=== PATIENT | female | born 1940 | race Caucasian/White ===

== ENCOUNTER → 2016-04-03 | Outpatient (CLI) | payer MEDICARE, MEDICAID ==
[2016-04-03 15:26] LABS: ALANINE AMINOTRANSFERASE 34 U/L (9-52); ALBUMIN 3.9 g/dL (3.5-5.0); ALKALINE PHOSPHATASE 55 U/L (38-126); ANION GAP 13 (5-19); ASPARTATE AMINO TRANSFERASE 27 U/L (14-36); BILIRUBIN,TOTAL 1.3 mg/dL (0.2-1.3); BLOOD UREA NITROGEN 11 mg/dL (7-20); CALCIUM 9.7 mg/dL (8.4-10.2); CARBON DIOXIDE 28 mmol/L (22-30); CHLORIDE 97 mmol/L (98-107); CREATININE RESULT 0.84 mg/dL (0.52-1.25); GLUCOSE 218 mg/dL (75-110); POTASSIUM 4.2 mmol/L (3.6-5.0); SODIUM 138.1 mmol/L (137-145); TOTAL PROTEIN 7.3 g/dL (6.3-8.2)
[2016-04-03 15:53] LABS: THYROID STIMULATING HORMONE 1.56 uIU/mL (0.47-4.68)
== END ==
LOC: OD 13:53
PROVIDERS: ATTEND Internal Medicine Endocrinology, Diabetes & Metabolism
DX: E11.65 Type 2 diabetes mellitus with hyperglycemia (principal)
CPT/HCPCS: 36415; 80053; 83036; 84439; 84443

== ENCOUNTER 2017-01-31 17:40 | Emergency (ER) | payer MEDICARE, MEDICAID ==
--- NOTE | 2017-01-31 18:18 | ER Document Report ---
ED General - General Mode of Arrival: Medic Information source: Patient Cannot obtain history due to: Dementia TRAVEL OUTSIDE OF THE [place] IN LAST 30 DAYS: No - HPI Patient complains to provider of: Abdominal pain/headache Onset: Just prior to arrival Onset/Duration: Sudden, Constant, Worse Quality of pain: Burning, Cramping, Sharp, Stabbing Severity: Moderate Pain Level: 3 Associated symptoms: Nausea, Weakness Exacerbated by: Denies Relieved by: Denies Similar symptoms previously: No Recently seen / treated by doctor: No <SHRUTHI CABRERA - Last Filed: 01/31/17 19:20> <ЕЛЕНА NICK - Last Filed: 02/01/17 00:13> - General Chief Complaint: Abdominal Pain Stated Complaint: STOMACH PAIN Time Seen by Provider: 01/31/17 17:57 Notes: Patient is a 77-year-old female comes emergency room by EMS from a facility called the [facility]. I understand the [facility] is a assisted living for dementia patients. The son is also at bedside who states that he and his sister had lunch with patient at her facility earlier today patient was complaining of not feeling well at that time. She did not eat very much according to the son. Son does not know much of patient's past medical history just states that when she does not feel good she does not eat. EMS reported to nursing that when they were called they were informed that patient was going to the bathroom and stated she could not get up and she had abdominal pain. The daughters arrived and informs me that patient has been sent out approximately a week ago to primary care provider for a checkup because of some chest pain she has been having. It was the daughter who informed me to nursing facility contacted her today told her the patient was once again having chest pain. Daughter also states that she has been complaining of some abdominal discomfort as well. She has a history of diverticulitis in the past. Patient has a no significant history of cardiac problems. There is also reported the patient is not drinking lots of fluids. (SHRUTHI CABRERA) - Related Data Allergies/Adverse Reactions: cephalexin monohydrate [From Keflex] Allergy (Verified 11/11/13 18:34) Unknown reaction Sulfa (Sulfonamide Antibiotics) Allergy (Verified 11/11/13 18:34) Unknown reaction Past Medical History - General Information source: Patient, POA - Power of Supervisor [place], Emergency Med Personnel, Outside Facility Records Cannot obtain history due to: Dementia - Social History Smoking Status: Unknown if Ever Smoked Cigarette use (# per day): No Chew tobacco use (# tins/day): No Smoking Education Provided: No Frequency of alcohol use: None Drug Abuse: None Family History: CAD - Past Medical History Cardiac Medical History: Reports: Hx Hypercholesterolemia Denies: Hx Atrial Fibrillation, Hx Congestive Heart Failure, Hx Coronary Artery Disease, Hx Heart Attack, Hx Hypertension, Hx Peripheral Vascular Disease , Hx Heart Murmur Pulmonary Medical History: Reports: Hx Bronchitis, Hx Pneumonia Denies: Hx Asthma, Hx COPD, Hx Tuberculosis Neurological Medical History: Denies: Hx Cerebrovascular Accident, Hx Seizures Endocrine Medical History: Reports: Hx Diabetes Mellitus Type 2. Denies: Hx Graves' Disease, Hx Hyperthyroidism, Hx Hypothyroidism GI Medical History: Reports: Hx Gastroesophageal Reflux Disease - Zantac BID. Denies: Hx Crohn's Disease, Hx Hiatal Hernia, Hx Irritable Bowel, Hx Liver Failure, Hx Pancreatitis, Hx Ulcer Musculoskeltal Medical History: Reports Hx Arthritis - generalized , Denies Hx Fibromyalgia, Denies Hx Multiple Sclerosis, Denies Hx Muscular Dystrophy Psychiatric Medical History: Denies: Hx Dementia, Hx Depression Traumatic Medical History: Reports: Hx Fractures - Hx LT humeral, LT patellar, Lt hip Fx's Past Surgical History: Reports: Hx Appendectomy, Hx Section - x 4, Hx Cholecystectomy, Hx Hysterectomy. Denies: Hx Bowel Surgery, Hx Colostomy, Hx Coronary Artery Bypass Graft, Hx Gastric Bypass Surgery, Hx Herniorrhaphy, Hx Mastectomy, Hx Pacemaker, Hx Tonsillectomy, Hx Tubal Ligation - Immunizations Hx Diphtheria, Pertussis, Tetanus Vaccination: Yes Hx Pneumococcal Vaccination: 02/08/13 <SHRUTHI CABRERA - Last Filed: 01/31/17 19:20> Review of Systems - Review of Systems Constitutional: Malaise, Weakness EENT: No symptoms reported Cardiovascular: No symptoms reported Respiratory: No symptoms reported Gastrointestinal: Abdominal pain, Nausea, Poor fluid intake Genitourinary: No symptoms reported Female Genitourinary: No symptoms reported Musculoskeletal: No symptoms reported Skin: No symptoms reported Hematologic/Lymphatic: No symptoms reported Neurological/Psychological: Headaches -: Yes All other systems reviewed and negative <SHRUTHI CABRERA - Last Filed: 01/31/17 19:20> Physical Exam - Vital signs Interpretation: Hypertensive, Bradycardic - General General appearance: Alert, Other - On physical exam patient is lying on the stretcher in exam room 12. When asked patient what was her reason for coming she states I do not know. She states that she had nominal pain up all of a sudden while she was getting ready for dinner and then she states after several minutes she had a severe headache. Son in her room about this time informing the patient has a history of dementia and basically patient is acting her baseline. Her son does state though that his sister is on the way here she has legal power of family law attorney and she knows everything about patient. Currently on physical exam no one was there that could tell me much. Patient comes from the [facility] which is a correction facility for dementia patients. - HEENT Head: Normocephalic, Atraumatic Eyes: Normal Nasal: Normal Mouth/Lips: Normal Mucous membranes: Dry Pharynx: Normal. No: Blood in hypopharynx, Erythema, Exudate, Peritonsillar abscess, Post nasal drainage, Retropharyngeal abscess, Tonsillar hypertrophy, Uvular edema, Potential airway comprom., Other Neck: Normal - Respiratory Respiratory status: No respiratory distress Chest status: Nontender Breath sounds: Normal Chest palpation: Normal - Cardiovascular Rhythm: Bradycardia Heart sounds: Normal auscultation - Abdominal Inspection: Normal Distension: Distended, Other - Examination of patient's abdomen shows that she is morbidly obese she has no tympany noted to percussion any quadrant. She has bowel sounds all 4 quads. Patient has increased tenderness in the left lower quadrant area. Patient is unsure whether she has her gallbladder or appendix she is only certain that she does not have any female organs. - Back Back: Normal, Nontender - Neurological Cognition: Confused Orientation: Disoriented to time, Disoriented to events Gattman Coma Scale Eye Opening: Spontaneous Gattman Coma Scale Verbal: Confused Poli Coma Scale Motor: Obeys Commands Gattman Coma Scale Total: 14 Speech: Normal - Skin Skin Temperature: Warm Skin Moisture: Dry Skin Color: Normal, Kimmell <SHRUTHI CABRERA - Last Filed: 01/31/17 19:20> - Vital signs Vitals: Temp Pulse Resp BP Pulse Ox 98.4 F 56 L 16 149/71 H 100 01/31/17 17:41 01/31/17 17:41 01/31/17 17:41 01/31/17 17:41 01/31/17 17:41 Course <SHRUTHI CABRERA - Last Filed: 01/31/17 19:20> - Laboratory Result Diagrams: 01/31/17 20:08 01/31/17 21:10 <ЕЛЕНА NICK - Last Filed: 02/01/17 00:13> - Re-evaluation Re-evalutation: 01/31/17 23:18 Recheck with patient. Pt currently continues to have a mild WEIR, frontal/sinus. No CP or worsening abd pain. Sodium moderate low 127, but is asymptomatic otherwise. Pt tolerating PO w/o difficulty CBC, Lipase, Trop x1 unremarkable. CXR unremarkable See CT head/abd-pelv results. Reviewed results with family and patient. 2nd trop pending. 02/01/17 00:03 2nd trop 0.019 (same as first). Pt asymptomatic. Reviewed case with Dr. Bill who is in agreement with discharge/plan. Patient is an afebrile, well-hydrated, 77-year-old female who presents the ED with a sinusitis, rectus sheath hematoma and decreased p.o. intake., Vitals are stable. PE is otherwise unremarkable. Patient is answering questions without any difficulties currently. Patient has no new concerns or complaints. Patient is tolerating p.o. without any difficulties. Patient states that she would like to go home. Low suspicion for any ACS, PE, pneumothorax, pericarditis, dissection, severe dehydration, CVA, TIA, hemorrhage, acute abdomen, or other systemic emergent condition at this time. Patient and family are aware that condition can change from initial presentation and the need to monitor symptoms closely and seek medical attention with any acute changes. I will send her home with a prescription for Augmentin to take as directed. Conservative measures for symptoms otherwise. Recheck with your PCM in 3-5 days. Return to the ED with any worsening/concerning symptoms otherwise as reviewed in discharge. He may consider consult with a general surgeon for the hematoma if unresolving or worsening. Patient and family are in agreement. ( ЕЛЕНА NICK) - Vital Signs Vital signs: Temp Pulse Resp BP Pulse Ox 98.4 F 56 L 16 149/71 H 100 01/31/17 17:41 01/31/17 17:41 01/31/17 17:41 01/31/17 17:41 01/31/17 17:41 - Laboratory Laboratory results interpreted by me: 01/31/17 01/31/17 01/31/17 20:08 20:21 21:10 RBC 3.16 L Hgb 9.7 L Hct 27.4 L Sodium 127.6 L Chloride 92 L Total Bilirubin 2.6 H Direct Bilirubin 0.6 H Total Protein 6.2 L Albumin 3.2 L Ur Leukocyte Esterase TRACE H - Transfer of Care Notes: 01/31/17 19:20 As stated earlier patient has been difficult to get history from since EMS had a version son had aversion and daughter had aversion. While waiting to get the stories together I started a workup based on physical exam that showed patient to have some left lower quadrant tenderness reproducible that she was slightly ashen in color her mouth was a little on the dry side she complained to me of a severe onset of a sudden headache but denied any visual problems and she also had some chest pain. Patient also has been coughing slightly. At this point I have placed orders for a CT head CT abdomen pelvis without contrast a urine urinalysis CBC CMP troponin lipase. Currently we are waiting for all of this to return. At this point I am going to turn patient over to the nighttime APC who is Rah Nick. If the diagnostics come back with patient having diverticulitis or a low-grade dehydration and we can send her back to the [facility] with treatment then she can definitely go back. Patient is a DNR and at this time pending the outcome of the CT head as well as the other labs if he feels it is warranted patient can be admitted for 23 hours for monitoring and stabilization and probably could go back tomorrow after being evaluated by the hospitalist. Currently I feel patient could probably go back if everything looks good. (SHRUTHI CABRERA) Discharge <SHRUTHI CABRERA - Last Filed: 01/31/17 19:20> <ЕЛЕНА NICK - Last Filed: 02/01/17 00:13> - Discharge Clinical Impression: Acute sinusitis Qualifiers: Sinusitis location: ethmoidal Recurrence: not specified as recurrent Qualified Code(s): J01.20 - Acute ethmoidal sinusitis, unspecified Rectus sheath hematoma Qualifiers: Encounter type: initial encounter Qualified Code(s): S30.1XXA - Contusion of abdominal wall, initial encounter Condition: Stable Disposition: HOME, SELF-CARE Instructions: Augmentin ([facility]), Sinusitis ([facility]) Additional Instructions: Maintain adequate fluid intake Take meds as directed tylenol/ibuprofen as needed over the counter cold medication as needed for symptoms Humidified air may help Monitor for any worsening symptoms, watch closely Eat a healthy diet and monitor urinary output F/u: with your PCM in 2-3 days for a recheck Return to the ED with any fever, worsening pain, changes in mentation/behavior/ sleep/speech/vision/urinations, chest pain, palpitations, syncope, worsening WEIR , neck pain/stiffness, shortness of breath, wheezing, drooling, trouble swallowing/breathing, abdominal pain, n/v/d, rash, or worsening/concerning symptoms otherwise. Prescriptions: Amox Tr/Potassium Clavulanate [Augmentin 875-125 Tablet] 1 tab PO BID 10 Days # 20 tablet Forms: Elevated Blood Pressure Referrals: Mervat, Provider [Other] - 02/04/17
--- NOTE | 2017-01-31 18:48 | RADIOLOGY REPORT (SQ) ---
EXAM DESCRIPTION: CT HEAD WITHOUT COMPLETED DATE/TIME: 01/31/2017 6:33 pm REASON FOR STUDY: headache COMPARISON: None. TECHNIQUE: Axial images acquired through the brain without intravenous contrast. Images reviewed wi th bone, brain and subdural windows. Images stored on PACS. All CT scanners at this facility use dose modulation, iterative reconstruction, and/or weight based d osing when appropriate to reduce radiation dose to as low as reasonably achievable (ALARA). [facility]: Dose Right [facility]: CareDose [facility]: Dose Right [facility]: Teradose 4D [facility]: Smart [employer] RADIATION DOSE: CT Rad equipment meets quality standard of care and radiation dose reduction techniq ues were employed. CTDIvol: 63.5 mGy. DLP: 1163 mGy-cm. mGy. LIMITATIONS: None. FINDINGS: VENTRICLES: Normal size and contour for age. CEREBRUM: No masses. No hemorrhage. No midline shift. No evidence for acute infarction. Normal gra y/white matter differentiation. No areas of low density in the white matter. CEREBELLUM: No masses. No hemorrhage. No alteration of density. No evidence for acute infarction. EXTRAAXIAL SPACES: No fluid collections. No masses. ORBITS AND GLOBE: No intra- or extraconal masses. Normal contour of globe without masses. CALVARIUM: No fracture. PARANASAL SINUSES: Mucous membrane thickening and fluid in the bilateral frontal ethmoid and maxillar y sinuses from sinusitis. SOFT TISSUES: No mass or hematoma. OTHER: No other significant finding. IMPRESSION: BILATERAL FRONTAL ETHMOID AND MAXILLARY SINUSITIS. OTHERWISE, UNREMARKABLE BRAIN CT WITHOUT CONTRAST. EVIDENCE OF ACUTE STROKE: NO. COMMENT: Quality ID # [id number]: Final reports with documentation of one or more dose reduction techniques (e.g., Automated exposure control, adjustment of the mA and/or kV according to patient size, use of iterative reconstruction technique) TECHNICAL DOCUMENTATION: JOB ID: [id number] [email or web address]- All Rights Reserved
[2017-01-31] MEDS ORDERED: NORMAL SALINE 1000 ML 1,000 ML IV ONE (19:05)
--- NOTE | 2017-01-31 20:14 | RADIOLOGY REPORT (SQ) ---
EXAM DESCRIPTION: CT ABD/PELVIS NO ORAL OR IV COMPLETED DATE/TIME: 01/31/2017 7:28 pm REASON FOR STUDY: LLQ pain COMPARISON: CT abdomen pelvis 11/11/2013 TECHNIQUE: CT scan of the abdomen and pelvis performed without intravenous or oral contrast. Images reviewed with lung, soft tissue, and bone windows. Reconstructed coronal and sagittal MPR images revi ewed. All images stored on PACS. All CT scanners at this facility use dose modulation, iterative reconstruction, and/or weight based d osing when appropriate to reduce radiation dose to as low as reasonably achievable (ALARA). [facility]: Dose Right [facility]: CareDose [facility]: Dose Right [facility]: Teradose 4D [facility]: Smart [employer] RADIATION DOSE: CT Rad equipment meets quality standard of care and radiation dose reduction techniq ues were employed. CTDIvol: 13.1 mGy. DLP: 679 mGy-cm.mGy. LIMITATIONS: None. FINDINGS: An acute left rectus muscle sheath hematoma is present, 7.6 cm transverse by 3.2 cm AP x 7 .5 cm craniocaudad. This is best shown on axial image 46, sagittal image 65, and coronal image 12. LOWER CHEST: Hiatal hernia. Coronary artery calcifications, cardiomegaly. NON-CONTRASTED LIVER, SPLEEN, ADRENALS: Evaluation limited by lack of IV contrast. No identified sign ificant masses. PANCREAS: No masses. No peripancreatic inflammatory changes. GALLBLADDER: Surgically absent RIGHT KIDNEY AND URETER: No suspicious masses. Assessment limited by lack of IV contrast. No signif icant calcifications. No hydronephrosis or hydroureter. LEFT KIDNEY AND URETER: No suspicious masses. Assessment limited by lack of IV contrast. No signifi cant calcifications. No hydronephrosis or hydroureter. AORTA AND RETROPERITONEUM: No aneurysm. No retroperitoneal masses or adenopathy. BOWEL AND PERITONEAL CAVITY: No bowel obstruction. No free intraperitoneal air or fluid. Incidental finding of a fatty polyp in the 3rd portion of the duodenum on coronal image 34. APPENDIX: Not identified PELVIS, BLADDER, AND ABDOMINAL WALL:No abnormal masses. No free fluid. Bladder normal. Normal size f emale pelvic organs. BONES: Old right hip replacement. Chronic L1 50% compression deformity OTHER: No other significant finding. IMPRESSION: Left rectus muscle sheath hematoma COMMENT: Quality ID # [id number]: Final reports with documentation of one or more dose reduction techniques (e.g., Automated exposure control, adjustment of the mA and/or kV according to patient size, use of iterative reconstruction technique) TECHNICAL DOCUMENTATION: JOB ID: [id number] [email or web address]- All Rights Reserved
--- NOTE | 2017-01-31 20:16 | RADIOLOGY REPORT (SQ) ---
EXAM DESCRIPTION: CHEST SINGLE VIEW COMPLETED DATE/TIME: 01/31/2017 7:42 pm REASON FOR STUDY: weakness COMPARISON: AP chest 01/20/2013, 09/18/2012 EXAM PARAMETERS: NUMBER OF VIEWS: One view. TECHNIQUE: Single frontal radiographic view of the chest acquired. RADIATION DOSE: NA LIMITATIONS: AP portable film, lordotic positioning FINDINGS: LUNGS AND PLEURA: No opacities, masses or pneumothorax. No pleural effusion. MEDIASTINUM AND HILAR STRUCTURES: No masses. Contour normal. HEART AND VASCULAR STRUCTURES: Stable mild cardiomegaly BONES: No acute findings. HARDWARE: Clips right upper quadrant post cholecystectomy OTHER: No other significant finding. IMPRESSION: NO ACUTE RADIOGRAPHIC FINDING IN THE CHEST. TECHNICAL DOCUMENTATION: JOB ID: [id number] [employer]- All Rights Reserved
[2017-01-31 20:21] LABS: ABSOLUTE BASOPHILS # (AUTO) 0.1 10^3/uL (0.0-0.2); ABSOLUTE EOSINOPHILS # (AUTO) 0.6 10^3/uL (0.0-0.6); ABSOLUTE MONOCYTES (AUTO) 0.8 10^3/uL (0.1-1.4); BASOPHILS % (AUTO) 0.9 % (0-2); HEMATOCRIT 27.4 % (36.0-47.0); HEMOGLOBIN 9.7 g/dL (12.0-15.5); HGB HCT DIFFERENCE 1.7; LYMPHOCYTES % (AUTO) 21.2 % (13-45); MEAN CORPUSCULAR HEMOGLOBIN 30.8 pg (27.0-33.4); MEAN CORPUSCULAR HGB CONC 35.5 g/dL (32.0-36.0); MEAN CORPUSCULAR VOLUME 87 fl (80-97); MONOCYTES % (AUTO) 8.8 % (3-13); RED BLOOD COUNT 3.16 10^6/uL (3.72-5.28); RED CELL DISTRIBUTION WIDTH 13.5 % (11.5-14.0); SEGMENTED NEUTROPHILS % (AUTO) 63.1 % (42-78); WHITE BLOOD COUNT 9.6 10^3/uL (4.0-10.5)
[2017-01-31 21:03] LABS: APPEARANCE,URINE CLOUDY; BILIRUBIN,URINE NEGATIVE (NEGATIVE); GLUCOSE, URINE NEGATIVE (NEGATIVE); KETONES,URINE NEGATIVE (NEGATIVE); LEUKOCYTE ESTERASE,URINE TRACE (NEGATIVE); NITRITE,URINE NEGATIVE (NEGATIVE); PROTEIN,URINE NEGATIVE (NEGATIVE); URINE SPECIFIC GRAVITY 1.003; UROBILINOGEN,URINE NEGATIVE mg/dL (<2.0)
[2017-01-31 21:53] LABS: ALANINE AMINOTRANSFERASE 25 U/L (9-52); ALBUMIN 3.2 g/dL (3.5-5.0); ALKALINE PHOSPHATASE 52 U/L (38-126); ANION GAP 11 (5-19); ASPARTATE AMINO TRANSFERASE 24 U/L (14-36); BILIRUBIN,DIRECT 0.6 mg/dL (0.0-0.4); BILIRUBIN,TOTAL 2.6 mg/dL (0.2-1.3); BLOOD UREA NITROGEN 12 mg/dL (7-20); CALCIUM 8.4 mg/dL (8.4-10.2); CARBON DIOXIDE 25 mmol/L (22-30); CHLORIDE 92 mmol/L (98-107); GLUCOSE 106 mg/dL (75-110); LIPASE 61.9 U/L (23-300); POTASSIUM 3.8 mmol/L (3.6-5.0); SODIUM 127.6 mmol/L (137-145); TOTAL PROTEIN 6.2 g/dL (6.3-8.2)
[2017-02-01 00:31] VITALS: BP 119/63
--- NOTE | 2017-02-01 14:44 | EKG REPORT ---
SEVERITY:- ABNORMAL ECG - ATRIAL FIBRILLATION BORDERLINE T ABNORMALITIES, ANT-LAT LEADS : Confirmed by: Sugar Daley MD 01-Feb-2017 14:43:53
== END 2017-02-01 01:00 | disposition home or self-care (01) ==
LOC: ER 17:40
DX: S30.1XXA Contusion of abdominal wall, initial encounter (principal); J01.20 Acute ethmoidal sinusitis, unspecified; F03.90 Unspecified dementia, unspecified severity, without behavioral disturbance, psychotic disturbance, mood disturbance, and anxiety; R10.9 Unspecified abdominal pain; X58.XXXA Exposure to other specified factors, initial encounter
CPT/HCPCS: 93005; 99285; 96360; 36415; 83690; 85025; 80053; 81001; 84484; 71010; 70450; 74176; 93010; J7030

== ENCOUNTER 2017-02-14 12:19 | Emergency (ER) | payer MEDICARE, MEDICAID ==
[2017-02-14] MEDS ORDERED: NORMAL SALINE 500 ML IV ONE (12:47)
--- NOTE | 2017-02-14 12:47 | ER Document Report ---
ED Medical Screen (RME) - General Chief Complaint: Abdominal Pain Stated Complaint: ABDOMINAL PAIN Time Seen by Provider: 02/14/17 12:40 Notes: The patient is a 77-year-old female presents from [facility] after she saw her primary care physician earlier today. Her PND noticed increased bruising diffusely around her lower abdomen. She was diagnosed with a rectus sheath hematoma about 2 weeks ago and takes Eliquis daily. Patient denies abdominal pain, fevers, nausea, vomiting or urinary symptoms. PE: Ecchymosis over lower abdomen, nontender I have greeted and performed a rapid initial assessment of this patient. A comprehensive ED assessment and evaluation of the patient, analysis of test results and completion of the medical decision making process will be conducted by additional ED providers. TRAVEL OUTSIDE OF THE [place] IN LAST 30 DAYS: No - Related Data Allergies/Adverse Reactions: cephalexin monohydrate [From Keflex] Allergy (Verified 02/14/17 12:22) Unknown reaction Sulfa (Sulfonamide Antibiotics) Allergy (Verified 02/14/17 12:22) Unknown reaction Past Medical History - Past Medical History Cardiac Medical History: Reports: Hx Hypercholesterolemia Denies: Hx Atrial Fibrillation, Hx Congestive Heart Failure, Hx Coronary Artery Disease, Hx Heart Attack, Hx Hypertension, Hx Peripheral Vascular Disease , Hx Heart Murmur Pulmonary Medical History: Reports: Hx Bronchitis, Hx Pneumonia Denies: Hx Asthma, Hx COPD, Hx Tuberculosis Neurological Medical History: Denies: Hx Cerebrovascular Accident, Hx Seizures Endocrine Medical History: Reports: Hx Diabetes Mellitus Type 2. Denies: Hx Graves' Disease, Hx Hyperthyroidism, Hx Hypothyroidism Renal/ Medical History: Denies: Hx Peritoneal Dialysis GI Medical History: Reports: Hx Gastroesophageal Reflux Disease - Zantac BID. Denies: Hx Crohn's Disease, Hx Hiatal Hernia, Hx Irritable Bowel, Hx Liver Failure, Hx Pancreatitis, Hx Ulcer Musculoskeltal Medical History: Reports Hx Arthritis - generalized , Denies Hx Fibromyalgia, Denies Hx Multiple Sclerosis, Denies Hx Muscular Dystrophy Psychiatric Medical History: Denies: Hx Dementia, Hx Depression Traumatic Medical History: Reports: Hx Fractures - Hx LT humeral, LT patellar, Lt hip Fx's Past Surgical History: Reports: Hx Appendectomy, Hx Section - x 4, Hx Cholecystectomy, Hx Hysterectomy. Denies: Hx Bowel Surgery, Hx Colostomy, Hx Coronary Artery Bypass Graft, Hx Gastric Bypass Surgery, Hx Herniorrhaphy, Hx Mastectomy, Hx Pacemaker, Hx Tonsillectomy, Hx Tubal Ligation - Immunizations Hx Diphtheria, Pertussis, Tetanus Vaccination: Yes Physical Exam - Vital signs Vitals: Temp Pulse Resp BP Pulse Ox 97.9 F 50 L 20 101/45 L 94 02/14/17 12:27 02/14/17 12:27 02/14/17 12:27 02/14/17 12:27 02/14/17 12:27 Course - Vital Signs Vital signs: Temp Pulse Resp BP Pulse Ox 97.9 F 50 L 20 101/45 L 94 02/14/17 12:27 02/14/17 12:27 02/14/17 12:27 02/14/17 12:27 02/14/17 12:27
[2017-02-14 15:22] LABS: PROTHROMBIN TIME 22.9 SEC (11.4-15.4)
[2017-02-14 15:33] LABS: ALANINE AMINOTRANSFERASE 25 U/L (9-52); ALBUMIN 2.6 g/dL (3.5-5.0); ALKALINE PHOSPHATASE 41 U/L (38-126); ANION GAP 8 (5-19); ASPARTATE AMINO TRANSFERASE 23 U/L (14-36); BILIRUBIN,DIRECT 0.5 mg/dL (0.0-0.4); BILIRUBIN,TOTAL 1.3 mg/dL (0.2-1.3); BLOOD UREA NITROGEN 25 mg/dL (7-20); CALCIUM 8.5 mg/dL (8.4-10.2); CARBON DIOXIDE 24 mmol/L (22-30); CHLORIDE 102 mmol/L (98-107); CREATINE KINASE 84 U/L (30-135); CREATININE RESULT 1.06 mg/dL (0.52-1.25); GLUCOSE 59 mg/dL (75-110); LIPASE 50.6 U/L (23-300)
[2017-02-14 15:48] LABS: APPEARANCE,URINE SLIGHTLY-CLOUDY; BILIRUBIN,URINE NEGATIVE (NEGATIVE); GLUCOSE, URINE NEGATIVE (NEGATIVE); KETONES,URINE NEGATIVE (NEGATIVE); LEUKOCYTE ESTERASE,URINE NEGATIVE (NEGATIVE); NITRITE,URINE NEGATIVE (NEGATIVE); PROTEIN,URINE NEGATIVE (NEGATIVE); URINE SPECIFIC GRAVITY 1.017; UROBILINOGEN,URINE NEGATIVE mg/dL (<2.0)
--- NOTE | 2017-02-14 15:51 | RADIOLOGY REPORT (SQ) ---
EXAM DESCRIPTION: CT ABD/PELVIS NO ORAL OR IV COMPLETED DATE/TIME: 02/14/2017 3:37 pm REASON FOR STUDY: bruising on abd larger, more painful, on eliquis COMPARISON: 01/31/2017 TECHNIQUE: CT scan of the abdomen and pelvis performed without intravenous or oral contrast. Images reviewed with lung, soft tissue, and bone windows. Reconstructed coronal and sagittal MPR images revi ewed. All images stored on PACS. All CT scanners at this facility use dose modulation, iterative reconstruction, and/or weight based d osing when appropriate to reduce radiation dose to as low as reasonably achievable (ALARA). [facility]: Dose Right [facility]: CareDose [facility]: Dose Right [facility]: Teradose 4D [facility]: Smart [employer] RADIATION DOSE: mGy. LIMITATIONS: None. FINDINGS: LOWER CHEST: No significant findings. No nodules or infiltrates. NON-CONTRASTED LIVER, SPLEEN, ADRENALS: Evaluation limited by lack of IV contrast. No identified sign ificant masses. PANCREAS: No masses. No peripancreatic inflammatory changes. GALLBLADDER: Surgically absent. RIGHT KIDNEY AND URETER: No suspicious masses. Assessment limited by lack of IV contrast. No signif icant calcifications. No hydronephrosis or hydroureter. LEFT KIDNEY AND URETER: No suspicious masses. Assessment limited by lack of IV contrast. No signifi cant calcifications. No hydronephrosis or hydroureter. AORTA AND RETROPERITONEUM: No aneurysm. No retroperitoneal masses or adenopathy. BOWEL AND PERITONEAL CAVITY: No obvious masses or inflammatory changes. No free fluid. APPENDIX: Surgically absent. PELVIS, BLADDER, AND ABDOMINAL WALL:Urinary bladder is normal. Uterus is normal for age. There is r ectus sheath hematoma on the left. This measures 36 mm maximum diameter. This continues to be sligh tly hyperdense in relation of the muscle, suggesting there could be some at least subacute hemorrhage . BONES: Grade 1 anterolisthesis of L4 on L5. Lower lumbar degenerative disc changes. OTHER: No other significant finding. IMPRESSION: Left rectus sheath hematoma that is slightly hyperdense, suggesting there could be some subacute hemorrhage. COMMENT: Quality ID # [id number]: Final reports with documentation of one or more dose reduction techniques (e.g., Automated exposure control, adjustment of the mA and/or kV according to patient size, use of iterative reconstruction technique) TECHNICAL DOCUMENTATION: JOB ID: [id number]- All Rights Reserved
[2017-02-14 16:37] LABS: ABSOLUTE EOSINOPHILS # (AUTO) 2.1 10^3/uL (0.0-0.6); ABSOLUTE LYMPHOCYTES (AUTO) 1.6 10^3/uL (0.5-4.7); ABSOLUTE MONOCYTES (AUTO) 1.1 10^3/uL (0.1-1.4); ABSOLUTE NEUT (AUTO) 4.1 10^3/uL (1.7-8.2); BASOPHILS % (AUTO) 0.5 % (0-2); EOSINOPHILS % (AUTO) 23.5 % (0-6); HEMATOCRIT 26.6 % (36.0-47.0); HEMOGLOBIN 9.1 g/dL (12.0-15.5); HGB HCT DIFFERENCE 0.7; MEAN CORPUSCULAR HEMOGLOBIN 33.1 pg (27.0-33.4); MEAN CORPUSCULAR HGB CONC 34.3 g/dL (32.0-36.0); MONOCYTES % (AUTO) 12.1 % (3-13); RED BLOOD COUNT 2.75 10^6/uL (3.72-5.28); RED CELL DISTRIBUTION WIDTH 18.9 % (11.5-14.0); SEGMENTED NEUTROPHILS % (AUTO) 45.9 % (42-78)
[2017-02-14 16:44] LABS: MEAN CORPUSCULAR VOLUME 97 fl (80-97)
--- NOTE | 2017-02-14 16:56 | ER Document Report ---
ED GI/ - General Chief Complaint: Abdominal Pain Stated Complaint: ABDOMINAL PAIN Time Seen by Provider: 02/14/17 12:40 Mode of Arrival: Medic Information source: Patient Notes: Patient is a 77-year-old female with a history of A. fib on Eliquis who was here 2 weeks ago and diagnosed with a rectus sheath hematoma. Patient is is complaining of abdominal pain all over And some nausea but no vomiting. patient has bruising on the lower abdomen. It is unclear if this is worsened or not. Caregiver here today with her is not her normal caregiver. Patient lives in assisted living. She is still taking her Eliquis, saw her primary care provider today who sent her here. Unknown how often she has a bowel movement or when her last bowel movement was. TRAVEL OUTSIDE OF THE [place] IN LAST 30 DAYS: No - Related Data Allergies/Adverse Reactions: cephalexin monohydrate [From Keflex] Allergy (Verified 02/14/17 12:22) Unknown reaction Sulfa (Sulfonamide Antibiotics) Allergy (Verified 02/14/17 12:22) Unknown reaction Past Medical History - General Information source: Patient - Social History Smoking Status: Never Smoker Family History: CAD Patient has suicidal ideation: No Patient has homicidal ideation: No - Past Medical History Cardiac Medical History: Reports: Hx Hypercholesterolemia Denies: Hx Atrial Fibrillation, Hx Congestive Heart Failure, Hx Coronary Artery Disease, Hx Heart Attack, Hx Hypertension, Hx Peripheral Vascular Disease , Hx Heart Murmur Pulmonary Medical History: Reports: Hx Bronchitis, Hx Pneumonia Denies: Hx Asthma, Hx COPD, Hx Tuberculosis Neurological Medical History: Denies: Hx Cerebrovascular Accident, Hx Seizures Endocrine Medical History: Reports: Hx Diabetes Mellitus Type 2. Denies: Hx Graves' Disease, Hx Hyperthyroidism, Hx Hypothyroidism Renal/ Medical History: Denies: Hx Peritoneal Dialysis GI Medical History: Reports: Hx Gastroesophageal Reflux Disease - Zantac BID. Denies: Hx Crohn's Disease, Hx Hiatal Hernia, Hx Irritable Bowel, Hx Liver Failure, Hx Pancreatitis, Hx Ulcer Musculoskeltal Medical History: Reports Hx Arthritis - generalized , Denies Hx Fibromyalgia, Denies Hx Multiple Sclerosis, Denies Hx Muscular Dystrophy Psychiatric Medical History: Denies: Hx Dementia, Hx Depression Traumatic Medical History: Reports: Hx Fractures - Hx LT humeral, LT patellar, Lt hip Fx's Past Surgical History: Reports: Hx Appendectomy, Hx Section - x 4, Hx Cholecystectomy, Hx Hysterectomy. Denies: Hx Bowel Surgery, Hx Colostomy, Hx Coronary Artery Bypass Graft, Hx Gastric Bypass Surgery, Hx Herniorrhaphy, Hx Mastectomy, Hx Pacemaker, Hx Tonsillectomy, Hx Tubal Ligation - Immunizations Hx Diphtheria, Pertussis, Tetanus Vaccination: Yes Hx Pneumococcal Vaccination: 02/08/13 Review of Systems - Review of Systems Constitutional: No symptoms reported EENT: No symptoms reported Cardiovascular: See HPI Respiratory: No symptoms reported Gastrointestinal: See HPI Genitourinary: No symptoms reported Female Genitourinary: No symptoms reported Musculoskeletal: No symptoms reported Skin: See HPI Hematologic/Lymphatic: No symptoms reported Neurological/Psychological: No symptoms reported Physical Exam - Vital signs Vitals: Temp Pulse Resp BP Pulse Ox 97.9 F 50 L 20 101/45 L 94 02/14/17 12:27 02/14/17 12:27 02/14/17 12:27 02/14/17 12:27 02/14/17 12:27 - Notes Notes: PHYSICAL EXAMINATION: GENERAL: Chronically ill-appearing, but in no acute distress. HEAD: Atraumatic, normocephalic. EYES: Pupils equal round and reactive to light, extraocular movements intact, sclera anicteric, conjunctiva are normal. NECK: Normal range of motion, supple without lymphadenopathy LUNGS: CTAB and equal. No wheezes rales or rhonchi. HEART: Regular rate and rhythm without murmurs ABDOMEN: Soft, mild diffuse tenderness. No guarding, no rebound BACK: no vertebral tenderness, normal ROM GI/: no CVA tenderness EXTREMITIES: Normal range of motion, no pitting edema. No cyanosis. NEUROLOGICAL: Cranial nerves grossly intact. Normal sensory/motor exams. PSYCH: Normal mood, normal affect. SKIN: Warm, Dry, normal turgor, ecchymosis to her entire lower abdomen wrapping around both sides into the back Course - Re-evaluation Re-evalutation: 02/14/17 17:37 Hemoglobin is essentially the same as 2 weeks ago, CAT scan today reports hematoma of essentially the same size. Patient's blood pressure is 137/60. She is in A. fib which it is assumed that she normally is because she is on Eliquis. CT shows constipation throughout. I will start her on MiraLAX and do believe that her nausea and abdominal discomfort today that brought her in are more due to the constipation than the hematoma that has been unchanged in 2 weeks. I will however stopped the Eliquis for 3 days and have her follow-up with her primary care provider. Caregiver states that it is very easy to get her in with her primary care provider and she will call tomorrow to make an appointment for 3 days from now. Patient has no complaints. - Vital Signs Vital signs: Temp Pulse Resp BP Pulse Ox 97.9 F 50 L 13 116/58 L 100 02/14/17 12:27 02/14/17 12:27 02/14/17 17:01 02/14/17 17:01 02/14/17 17:00 - Laboratory Result Diagrams: 02/14/17 16:12 02/14/17 14:53 Laboratory results interpreted by me: 02/14/17 02/14/17 02/14/17 14:53 14:53 16:12 RBC 2.75 L Hgb 9.1 L Hct 26.6 L RDW 18.9 H Eosinophils % 23.5 H Absolute Eosinophils 2.1 H PT 22.9 H APTT 38.0 H Sodium 134.0 L BUN 25 H Est GFR (Non-Af Amer) 50 L Glucose 59 L Direct Bilirubin 0.5 H Total Protein 5.0 L Albumin 2.6 L Discharge - Discharge Clinical Impression: Rectus sheath hematoma Qualifiers: Encounter type: initial encounter Qualified Code(s): S30.1XXA - Contusion of abdominal wall, initial encounter Constipation Qualifiers: Constipation type: unspecified constipation type Qualified Code(s): K59.00 - Constipation, unspecified Condition: Stable Disposition: HOME, SELF-CARE Additional Instructions: Please hold eliquis for 3 days and follow up with [facility]. Return immediately for any new or worsening symptoms. Follow up with primary care provider, call tomorrow to make followup appointment. Please drink plenty fluids. Prescriptions: Polyethylene Glycol 3350 [Miralax] 1 cap PO DAILY #527 powder
[2017-02-14 17:27] VITALS: BP 116/58
== END 2017-02-14 17:15 | disposition home or self-care (01) ==
LOC: ER 12:19
DX: S30.1XXA Contusion of abdominal wall, initial encounter (principal); K59.00 Constipation, unspecified; R10.9 Unspecified abdominal pain; I48.91 Unspecified atrial fibrillation; R11.0 Nausea; Z79.01 Long term (current) use of anticoagulants; X58.XXXA Exposure to other specified factors, initial encounter
CPT/HCPCS: 99284; 96360; 36415; 82550; 83690; 85025; 85610; 85730; 80053; 81001; 74176; J7040

== ENCOUNTER 2017-03-12 09:16 | Emergency (ER) | payer MEDICARE, MEDICAID ==
[2017-03-12] MEDS ORDERED: NORMAL SALINE 1000 ML 1,000 ML IV ONE (09:34)
[2017-03-12 11:27] LABS: APPEARANCE,URINE CLOUDY; BILIRUBIN,URINE NEGATIVE (NEGATIVE); COLOR,URINE YELLOW; GLUCOSE, URINE 50 mg/dL (NEGATIVE); KETONES,URINE NEGATIVE (NEGATIVE); LEUKOCYTE ESTERASE,URINE NEGATIVE (NEGATIVE); NITRITE,URINE NEGATIVE (NEGATIVE); PROTEIN,URINE NEGATIVE (NEGATIVE); URINE SPECIFIC GRAVITY 1.017; UROBILINOGEN,URINE NEGATIVE mg/dL (<2.0)
[2017-03-12 11:40] LABS: HEMATOCRIT 22.1 % (36.0-47.0); MEAN CORPUSCULAR HEMOGLOBIN 31.8 pg (27.0-33.4); MEAN CORPUSCULAR HGB CONC 32.5 g/dL (32.0-36.0); MEAN CORPUSCULAR VOLUME 98 fl (80-97); PLATELET COUNT 493 10^3/uL (150-450); RED BLOOD COUNT 2.26 10^6/uL (3.72-5.28); RED CELL DISTRIBUTION WIDTH 18.3 % (11.5-14.0); WHITE BLOOD COUNT 26.9 10^3/uL (4.0-10.5)
[2017-03-12 11:43] LABS: HEMOGLOBIN 7.2 g/dL (12.0-15.5)
[2017-03-12 11:45] LABS: INTERNATIONAL RATION (INR) 2.39; PROTHROMBIN TIME 27.3 SEC (11.4-15.4)
[2017-03-12 11:46] LABS: PARTIAL THROMBOPLASTIN TIME 46.4 SEC (23.5-35.8)
[2017-03-12 11:56] LABS: ABSOLUTE LYMPHOCYTES# (MANUAL) 1.1 10^3/uL (0.5-4.7); ABSOLUTE MONOCYTES # (MANUAL) 1.3 10^3/uL (0.1-1.4); ABSOLUTE NEUTROPHILS# (MANUAL) 24.5 10^3/uL (1.7-8.2); BAND NEUTROPHILS % (MANUAL) 1 % (3-5); BASOPHILS % (MANUAL) 0 % (0-2); EOSINOPHILS % (MANUAL) 0 % (0-6); LYMPHOCYTES % (MANUAL) 4 % (13-45); MONOCYTES % (MANUAL) 5 % (3-13); SEGMENTED NEUTROPHILS % (MAN) 90 % (42-78); TOTAL CELLS COUNTED 100
[2017-03-12 11:58] LABS: ANISOCYTOSIS 1+; HYPOCHROMASIA SLIGHT; POIKILOCYTOSIS 1+; POLYCHROMASIA SLIGHT; TOXIC GRANULATION 1+; TOXIC VACUOLATION PRESENT
[2017-03-12 11:59] LABS: BURR CELLS SLIGHT; PLATELET COMMENT INCREASED; SCHISTOCYTES SLIGHT
--- NOTE | 2017-03-12 12:35 | RADIOLOGY REPORT (SQ) ---
EXAM DESCRIPTION: CT FACIAL AREA WITH COMPLETED DATE/TIME: 03/12/2017 12:12 pm REASON FOR STUDY: bilateral jaw/facial swelling parodtid gland swell COMPARISON: None. TECHNIQUE: Post contrast images through the facial bones and orbits windowed for bone and soft tissu e. Additional coronal and sagittal reconstructed images reviewed. All images stored on PACS. All CT scanners at this facility use dose modulation, iterative reconstruction, and/or weight based d osing when appropriate to reduce radiation dose to as low as reasonably achievable (ALARA). [facility]: Dose Right [facility]: CareDose [facility]: Dose Right [facility]: Teradose 4D [facility]: [employer] CONTRAST TYPE AND DOSE: contrast/concentration: Isovue 370.00 mg/ml; Total Contrast Delivered: 70.0 ml; Total Saline Delivered: 65.0 ml RENAL FUNCTION: BUN 25 creatinine 1.1 RADIATION DOSE: CT Rad equipment meets quality standard of care and radiation dose reduction techniq ues were employed. CTDIvol: 10.7 - 18.5 mGy. DLP: 2487 mGy-cm. . LIMITATIONS: None. FINDINGS: Inflammatory changes surrounding enlarged submandibular glands, right greater than left. No obvious salivary duct stone. Parotid glands are normal. Larynx is normal. Visualized thyroid is normal. Subcentimeter regional lymph nodes. No bulky adenopathy. Major vascular structures are pa tent. IMPRESSION: Submandibular sialadenitis. Cannot exclude underlying mass. ENT consultation is recomm ended. TECHNICAL DOCUMENTATION: JOB ID: [id number] Quality ID # [id number]: Final reports with documentation of one or more dose reduction techniques (e.g., Au tomated exposure control, adjustment of the mA and/or kV according to patient size, use of iterative reconstruction technique) 2010 [employer]- All Rights Reserved
--- NOTE | 2017-03-12 12:53 | RADIOLOGY REPORT (SQ) ---
EXAM DESCRIPTION: CT ABD/PELVIS WITH IV ONLY COMPLETED DATE/TIME: 03/12/2017 12:13 pm REASON FOR STUDY: abd brushing hx of hematoma decreased H H COMPARISON: 02/14/2017, 01/31/2017, and 11/11/2013. TECHNIQUE: CT scan of the abdomen and pelvis performed using helical scanning technique with dynamic intravenous contrast injection. No oral contrast. Images reviewed with lung, soft tissue, and bone windows. Reconstructed coronal and sagittal MPR images reviewed. Delayed images for evaluation of the urinary system also acquired. All images stored on PACS. All CT scanners at this facility use dose modulation, iterative reconstruction, and/or weight based d osing when appropriate to reduce radiation dose to as low as reasonably achievable (ALARA). [facility]: Dose Right [facility]: CareDose [facility]: Dose Right [facility]: Teradose 4D [facility]: [employer] CONTRAST TYPE AND DOSE: 70 mL Isovue 370- low osmolar. RENAL FUNCTION: BUN 25 creatinine 1.06. RADIATION DOSE: . LIMITATIONS: None. FINDINGS: LOWER CHEST: No significant findings. No nodules or infiltrates. LIVER: Normal size. No masses. No dilated ducts. SPLEEN: Normal size. No focal lesions. PANCREAS: No masses. No significant calcifications. No adjacent inflammation or peripancreatic fluid collections. Pancreatic duct not dilated. GALLBLADDER: Surgically absent. ADRENAL GLANDS: No significant masses or asymmetry. RIGHT KIDNEY AND URETER: No solid masses. No significant calcifications. No hydronephrosis or hyd roureter. LEFT KIDNEY AND URETER: No solid masses. No significant calcifications. No hydronephrosis or hydr oureter. AORTA AND VESSELS: No aneurysm. No dissection. Renal arteries, SMA, celiac without stenosis. RETROPERITONEUM: No retroperitoneal adenopathy, hemorrhage or masses. BOWEL AND PERITONEAL CAVITY: No masses or inflammatory changes. No free fluid or peritoneal masses. APPENDIX: Surgically absent. PELVIS: No mass. No free fluid. The urinary bladder is moderately distended but otherwise unremarka ble. ABDOMINAL WALL: The left rectus sheath hematoma has decreased in size. Current measurements are 2.2 by 6.3 cm with prior measurements of 3.5 by 6.6 cm. BONES: Degenerative changes in the spine. Old compression deformity of L1, stable since at least 201 4. Right hip prosthesis. OTHER: No other significant finding. IMPRESSION: 1. INTERVAL DECREASE IN SIZE IN THE LEFT RECTUS SHEATH HEMATOMA. 2. MODERATELY DISTENDED URINARY BLADDER. THIS MAY BE AN INCIDENTAL FINDING RELATED TO LACK OF RECENT VOIDING. 3. OTHER CHRONIC FINDINGS ABOVE. NO OTHER SIGNIFICANT OR ACUTE FINDING IN THE ABDOMEN OR PELVIS O N CT SCAN WITH IV CONTRAST. TECHNICAL DOCUMENTATION: JOB ID: [id number] Quality ID # [id number]: Final reports with documentation of one or more dose reduction techniques (e.g., Au tomated exposure control, adjustment of the mA and/or kV according to patient size, use of iterative reconstruction technique) 2010 [employer]- All Rights Reserved
[2017-03-12] MEDS ORDERED: CLINDAMYCIN 600 MG/D5W RTU 600 MG/50 ML RTUPB IV ONE (13:03)
[2017-03-12] MEDS ORDERED: NORMAL SALINE 250 ML IV PRN ×2 (13:17)
[2017-03-12] MEDS ORDERED: DEXAMETHASONE SOD PHOS INJ 10 MG/1 ML VIAL IV ONE (13:18)
[2017-03-12] MEDS ORDERED: PANTOPRAZOLE SODIUM 40 MG VIAL IV ONE (13:18)
[2017-03-12 14:12] LABS: ANION GAP 10 (5-19); BLOOD UREA NITROGEN 64 mg/dL (7-20); CALCIUM 8.8 mg/dL (8.4-10.2); CARBON DIOXIDE 21 mmol/L (22-30); CHLORIDE 105 mmol/L (98-107); GLUCOSE 144 mg/dL (75-110); POTASSIUM 4.9 mmol/L (3.6-5.0); SODIUM 135.7 mmol/L (137-145)
--- NOTE | 2017-03-12 14:32 | ER Document Report ---
ED General - General Chief Complaint: Facial Swelling Stated Complaint: ALTERED MENTAL STATUS Time Seen by Provider: 03/12/17 09:32 TRAVEL OUTSIDE OF THE [place] IN LAST 30 DAYS: No - HPI Patient complains to provider of: Facial swelling Notes: Patient coming in for evaluation of facial swelling. Patient was brought in by EMS. EMS states that the group home the patient is currently at also complained of the patient had altered mental status. Upon my evaluation patient is alert oriented patient does not look to be altered upon my initial approach. Patient is a DNR. Patient has a history of atrial fibrillation and is on currently on Eliquis. Patient does look a little pale. Patient does have a recent history of a rectal sheath hematoma was evaluated back in January and February. Patient otherwise states that the jaw has been hurting her for approximately 1 week with increased swelling. Denies dry mouth patient states not been willing to eat or drink due to the pain. - Related Data Allergies/Adverse Reactions: amoxicillin [From Augmentin] Allergy (Verified 03/12/17 09:44) cephalexin monohydrate [From Keflex] Allergy (Verified 02/14/17 12:22) Unknown reaction clavulanic acid [From Augmentin] Allergy (Verified 03/12/17 09:44) Sulfa (Sulfonamide Antibiotics) Allergy (Verified 02/14/17 12:22) Unknown reaction Past Medical History - Social History Smoking Status: Unknown if Ever Smoked Family History: CAD Patient has suicidal ideation: No Patient has homicidal ideation: No - Past Medical History Cardiac Medical History: Reports: Hx Hypercholesterolemia Denies: Hx Atrial Fibrillation, Hx Congestive Heart Failure, Hx Coronary Artery Disease, Hx Heart Attack, Hx Hypertension, Hx Peripheral Vascular Disease , Hx Heart Murmur Pulmonary Medical History: Reports: Hx Bronchitis, Hx Pneumonia Denies: Hx Asthma, Hx COPD, Hx Tuberculosis Neurological Medical History: Denies: Hx Cerebrovascular Accident, Hx Seizures Endocrine Medical History: Reports: Hx Diabetes Mellitus Type 2. Denies: Hx Graves' Disease, Hx Hyperthyroidism, Hx Hypothyroidism Renal/ Medical History: Denies: Hx Peritoneal Dialysis GI Medical History: Reports: Hx Gastroesophageal Reflux Disease - Zantac BID. Denies: Hx Crohn's Disease, Hx Hiatal Hernia, Hx Irritable Bowel, Hx Liver Failure, Hx Pancreatitis, Hx Ulcer Musculoskeltal Medical History: Reports Hx Arthritis - generalized , Denies Hx Fibromyalgia, Denies Hx Multiple Sclerosis, Denies Hx Muscular Dystrophy Psychiatric Medical History: Denies: Hx Dementia, Hx Depression Traumatic Medical History: Reports: Hx Fractures - Hx LT humeral, LT patellar, Lt hip Fx's Past Surgical History: Reports: Hx Appendectomy, Hx Section - x 4, Hx Cholecystectomy, Hx Hysterectomy. Denies: Hx Bowel Surgery, Hx Colostomy, Hx Coronary Artery Bypass Graft, Hx Gastric Bypass Surgery, Hx Herniorrhaphy, Hx Mastectomy, Hx Pacemaker, Hx Tonsillectomy, Hx Tubal Ligation - Immunizations Hx Diphtheria, Pertussis, Tetanus Vaccination: Yes Hx Pneumococcal Vaccination: 02/08/13 Review of Systems - Review of Systems Constitutional: No symptoms reported EENT: Other - Neck swelling Cardiovascular: No symptoms reported Respiratory: No symptoms reported Gastrointestinal: No symptoms reported Genitourinary: No symptoms reported Female Genitourinary: No symptoms reported Musculoskeletal: No symptoms reported Skin: No symptoms reported Hematologic/Lymphatic: No symptoms reported Neurological/Psychological: No symptoms reported -: Yes All other systems reviewed and negative Physical Exam - Vital signs Vitals: Pulse Resp BP Pulse Ox 80 16 120/50 L 95 03/12/17 12:09 03/12/17 12:09 03/12/17 12:09 03/12/17 12:09 Interpretation: Normal - General General appearance: Appears well, Alert - HEENT Head: Normocephalic, Atraumatic Eyes: Normal Conjunctiva: Normal Cornea: Normal Pupils: PERRL Neck: Other - Patient has protruding submandibular glands no skin changes. No elevation of the tongue. They are tender to palpation. Evaluation of the oral cavity reveals dentures with white thrush. No signs of dental decay or obvious oral abscess. - Respiratory Respiratory status: No respiratory distress Chest status: Nontender Breath sounds: Normal Chest palpation: Normal - Cardiovascular Rhythm: Regular Heart sounds: Normal auscultation Murmur: No - Abdominal Inspection: Other - Multiple areas of bruising Distension: No distension Bowel sounds: Normal Tenderness: Nontender Organomegaly: No organomegaly - Rectal Stool: Heme positive, Black - Back Back: Normal, Nontender - Extremities General upper extremity: Normal inspection, Nontender, Normal color, Normal ROM , Normal temperature General lower extremity: Normal inspection, Nontender, Normal color, Normal ROM , Normal temperature, Normal weight bearing. No: Mac's sign - Neurological Neuro grossly intact: Yes Cognition: Normal Orientation: AAOx4 Poli Coma Scale Eye Opening: Spontaneous Poli Coma Scale Verbal: Oriented [place] Coma Scale Motor: Obeys Commands Poli Coma Scale Total: 15 Speech: Normal Motor strength normal: LUE, RUE, LLE, RLE Sensory: Normal - Psychological Associated symptoms: Normal affect, Normal mood - Skin Skin Temperature: Warm Skin Moisture: Dry Skin Color: Pale Course - Re-evaluation Re-evalutation: 03/12/17 14:30 Lab work returned with a significant white count left shift and anemia. Patient also has anemia with a hemoglobin has decreased from 9.1 in February 09 now 7.2. Patient does have elevation coags she is on Eliquis. Rectal exam performed after talking with family members patient is also had black stools for 1 week rectal exam to confirm black stools. Patient was given a bolus of Protonix. IV fluids were given. Patient's laboratory studies that showed elevated BUN. Because of the CT scan showing inflammation of the submandibular glands elevated white count concern for infection start patient on Decadron and clindamycin. Will discuss with family members at bedside as the patient is a DNR as far as treatment plan I did involve her hospitalist here at [facility] stated that if admitted to the hospital they would not do any blood transfusions or antibiotics. Family members are requesting at least treatment therefore we will need to necessitate transfer. Discussed with Dr. Ten Crouch who agrees to set the patient in transfer. Vital signs do remain stable A. fib on a monitor rate control. Blood pressure remained stable. Will transfuse patient 1 unit of blood. At this time patient is able tolerate orals not concerned about immediate airway compromise do believe the patient will be stable for observation here in the ER until transfer is initiated. - Vital Signs Vital signs: Temp Pulse Resp BP Pulse Ox 80 16 120/50 L 95 03/12/17 12:09 03/12/17 12:09 03/12/17 12:09 03/12/17 12:09 - Laboratory Result Diagrams: 03/12/17 11:28 03/12/17 13:35 Laboratory results interpreted by me: 03/12/17 03/12/17 03/12/17 10:55 11:28 11:28 WBC 26.9 H RBC 2.26 L Hgb 7.2 L Hct 22.1 L MCV 98 H RDW 18.3 H Plt Count 493 H Seg Neuts % (Manual) 90 H Band Neutrophils % 1 L Lymphocytes % (Manual) 4 L Abs Neuts (Manual) 24.5 H PT 27.3 H APTT 46.4 H Sodium Carbon Dioxide BUN Est GFR ( Amer) Est GFR (Non-Af Amer) Glucose Urine Glucose (UA) 50 H Urine Blood SMALL H 03/12/17 13:35 WBC RBC Hgb Hct MCV RDW Plt Count Seg Neuts % (Manual) Band Neutrophils % Lymphocytes % (Manual) Abs Neuts (Manual) PT APTT Sodium 135.7 L Carbon Dioxide 21 L BUN 64 H Est GFR ( Amer) 50 L Est GFR (Non-Af Amer) 42 L Glucose 144 H Urine Glucose (UA) Urine Blood Critical Care Note - Critical Care Note Total time excluding time spent on procedures (mins): 35 Comments: Multiple evaluations patient with GI bleed and submandibular infection Discharge - Discharge Clinical Impression: Do not resuscitate, Eliquis therapy, Submandibular gland infection A-fib Qualifiers: Atrial fibrillation type: unspecified Qualified Code(s): I48.91 - Unspecified atrial fibrillation GI bleed Qualifiers: GI bleed type/associated pathology: melena Qualified Code(s): K92.1 - Melena Condition: Stable Disposition: [facility]
[2017-03-12] MEDS ORDERED: FUROSEMIDE INJ/PF 20 MG/2 ML SDV IV ONE (15:17)
[2017-03-12] MEDS ORDERED: ACETAMINOPHEN 325 MG TABLET PO PRN (15:21)
[2017-03-12] MEDS ORDERED: ONDANSETRON HCL INJ/PF 4 MG/2 ML SDV IV PRN (15:21)
[2017-03-12 16:45] VITALS: BP 100/65
[2017-03-12] MEDS ORDERED: PANTOPRAZOLE SODIUM 40 MG VIAL IV SCH (18:00)
[2017-03-12] MEDS ORDERED: CLINDAMYCIN 300 MG/D5W RTU 300 MG/50 ML RTUPB IV SCH (22:00)
== END 2017-03-12 16:00 | disposition short-term general hospital (02) ==
LOC: ER 09:16
DX: R41.82 Altered mental status, unspecified (principal); M27.2 Inflammatory conditions of jaws; I48.91 Unspecified atrial fibrillation; K92.1 Melena; Z66 Do not resuscitate; E78.00 Pure hypercholesterolemia, unspecified; E11.9 Type 2 diabetes mellitus without complications; K21.9 Gastro-esophageal reflux disease without esophagitis; Z88.0 Allergy status to penicillin; Z88.2 Allergy status to sulfonamides; Z90.49 Acquired absence of other specified parts of digestive tract; Z90.710 Acquired absence of both cervix and uterus; Z79.02 Long term (current) use of antithrombotics/antiplatelets
CPT/HCPCS: 99291; 96361; 96375; 96365; 86900; 86901; 36415; 36430; 86850; 85025; 85610; 85730; 82272; 80048; 81001; 86920; 83605; 70487; 74177; P9016; J1940; C9113; J7030; J1100; S0164